=== PATIENT | female | born 1980 | race African-American/Black ===

== ENCOUNTER 2016-12-04 08:55 | Emergency (ER) | payer OTHER ==
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
[2016-12-04] MEDS ORDERED: DILAUDID IM ONE (09:43)
[2016-12-04] MEDS ORDERED: ZOFRAN ODT PO ONE (09:43)
--- NOTE | 2016-12-04 10:52 | Diag Imaging Result Document ---
PROCEDURE NAME: HEAD/C-SPINE W/O CONTRAST - 12/04/[address]: A CT dose reduction protocol was used. COMPARISON: None. FINDINGS: The ventricles and sulci are normal in size and contour. There is no mass, hemorrhage, or evidence of acute ischemia. The bony calvaria is intact. The visualized paranasal sinuses and mastoid air cells are clear. IMPRESSION: Negative head CT. CT CERVICAL SPINE: A CT dose reduction protocol was used. COMPARISON: None. FINDINGS: Alignment is anatomic. Vertebral body heights and intervertebral disc spaces are preserved. Neural foramina are patent. Soft tissues are clear. IMPRESSION: Negative Exam. MTDD
--- NOTE | 2016-12-04 11:11 | Diag Imaging Result Document ---
PROCEDURE NAME: THORAX/ABDOMEN/PELVIS W/O CONT - 12/04/2016 CT CHEST: A CT dose reduction protocol was used. COMPARISON: None. FINDINGS: The lungs are normally expanded and clear. Heart size and mediastinal contours are normal. No pneumothorax or pleural effusion. IMPRESSION: Negative exam. CT ABDOMEN AND PELVIS: A CT dose reduction protocol was used. COMPARISON: None. FINDINGS: No radiodense renal stones. No hydronephrosis or hydroureter. No bowel obstruction or inflammation. Normal appendix. No free air or free fluid. Bones are intact. Urinary bladder, uterus, and rectum are normal. No solid organ injury. IMPRESSION: Negative exam. [facility]
[2016-12-04] MEDS ORDERED: TORADOL IV ONE (11:53)
[2016-12-04] MEDS ORDERED: TORADOL IM ONE (12:41)
[2016-12-04 12:43] VITALS: BP 132/88
== END 2016-12-04 12:43 | disposition home or self-care (01) ==
LOC: EDBD → ED 08:55 → SUPCPDRO 08:55 → ED 12:43
DX: S16.1XXA Strain of muscle, fascia and tendon at neck level, initial encounter (principal); S39.012A Strain of muscle, fascia and tendon of lower back, initial encounter; T14.8 Other injury of unspecified body region; R51 Headache; M54.2 Cervicalgia; M54.9 Dorsalgia, unspecified; M79.1 Myalgia; V49.9XXA Car occupant (driver) (passenger) injured in unspecified traffic accident, initial encounter
CPT/HCPCS: 70450; 71250; 72125; 74176; 82948; J1170; J1885